=== PATIENT | female | born 1965 | race Caucasian/White ===

== ENCOUNTER → 2019-04-07 | Outpatient (CLI) | payer BC ==
[2019-04-07 07:47] LABS: ANION GAP 12.6; CHLORIDE,CL 104 mmol/L (101-111); SODIUM,NA 139 mmol/L (135-145)
== END ==
LOC: DL.LAB 07:03
PROVIDERS: ATTEND Family Medicine
DX: I10 Essential (primary) hypertension (principal)
CPT/HCPCS: 36415; 80053; 80061; 85025

== ENCOUNTER 2020-06-01 13:30 | Emergency (ER) | payer BC ==
[2020-06-01] MEDS ORDERED: Lidocaine 1% 30 ML SDV ONE (13:31)
[2020-06-01] MEDS ORDERED: Lidocaine 1% 30 ML SDV INJECT ONE (13:47)
--- NOTE | 2020-06-01 15:05 | EDM.PDOC ---
ED HPI GENERAL MEDICAL PROBLEM - General Chief Complaint: Skin Complaint Stated Complaint: RIGHT PINKY BLEEDING Time Seen by Provider: 06/01/20 14:45 Source of Information: Reports: Patient History Limitations: Reports: No Limitations - History of Present Illness INITIAL COMMENTS - FREE TEXT/NARRATIVE: This 55 yo female patient reports to the ED with bleeding from her right 5th finger. The patient reports she noticed a small elevated area on her finger last night and popped it. The patient reports she has been bleeding from the area since last night. The patient has been applying pressure to the area, but it continues to bleed. Onset Date: 05/31/20 Duration: Constant Location: Reports: Upper Extremity, Right Quality: Reports: Other Severity: Mild Improves with: Reports: None Worsens with: Reports: None Context: Reports: Other Associated Symptoms: Reports: No Other Symptoms - Related Data Allergies Allergy/AdvReac Type Severity Reaction Status Date / Time No Known Allergies Allergy Verified 06/01/20 14:05 Home Meds: Home Meds Aspirin [Halfprin] 81 mg PO DAILY 03/13/15 [History] Biotin 5,000 mcg PO DAILY 03/13/15 [History] Calcium Carbonate 600 mg PO DAILY 03/13/15 [History] Cholecalciferol (Vitamin D3) [Vitamin D3] 1 tab PO DAILY 03/13/15 [History] Ferrous Sulfate [Iron] 1 tab PO DAILY 03/13/15 [History] Fish Oil/[place]-3 Fatty Acids [Fish Oil 1,000 MG] 1 cap PO DAILY 03/13/15 [History] Ibuprofen 400 mg PO Q8H PRN 03/13/15 [History] Multivitamin [Multivitamins] 1 tab PO DAILY 03/13/15 [History] PARoxetine [Paxil] 20 mg PO DAILY 03/13/15 [History] Past Medical History Cardiovascular History: Reports: Hypertension Musculoskeletal History: Reports: Other (See Below) Other Musculoskeletal History: Scoliosis ED ROS GENERAL - Review of Systems Review Of Systems: Comprehensive ROS is negative, except as noted in HPI. ED EXAM, SKIN/RASH Exam: See Below Exam Limited By: No Limitations General Appearance: Alert, WD/WN, No Apparent Distress Eye Exam: Bilateral Eye: EOMI, Normal Inspection, PERRL Ears: Hearing Grossly Normal Nose: Normal Inspection, No Blood Throat/Mouth: Normal Lips, Normal Teeth Neck: Full Range of Motion Respiratory/Chest: No Respiratory Distress, Lungs Clear, Normal Breath Sounds, No Accessory Muscle Use, Chest Non-Tender Cardiovascular: Normal Peripheral Pulses, Regular Rate, Rhythm (Female) Exam: Deferred Rectal (Female) Exam: Deferred Neurological: Alert, Oriented, CN II-XII Intact, Normal Cognition, Normal Gait, Normal Reflexes, No Motor/Sensory Deficits Psychiatric: Normal Affect, Normal Mood Skin: Wound/Incision (right 5th finger) Location, Skin: Upper Extremity, Right Lymphatic: No Adenopathy ED SKIN PROCEDURES - Laceration/Wound Repair Right Distal Digit - 5th (Baby) Appearance: Subcutaneous Distal NVT: Neuro & Vascular Intact Anesthetic Type: Local Local Anesthesia - Lidocaine (Xylocaine): 1% Plain Local Anesthetic Volume: 1cc Skin Prep: Saline Exploration/Debridement/Repair: Wound Explored, No Foreign Material Found Closed with: Sutures Lac/Wound length In cm: 0.5 Suture Size: 4-0 Suture Type: Prolene, Interrupted, Simple Drain Placement: No Sterile Dressing Applied: Nurse Tetanus Status Addressed: No Complications: No Course - Orders/Labs/Meds Meds: Medications Discontinued Medications Generic Name Dose Route Start Last Admin Trade Name Naomie PRN Reason Stop Dose Admin Lidocaine HCl 30 ml 06/01/20 13:47 Xylocaine-Mpf 1% INJECT 06/01/20 13:48 ONETIME ONE Departure - Departure Time of Disposition: 15:31 Disposition: Home, Self-Care 01 Condition: Fair Clinical Impression: Laceration of right little finger w/o foreign body w/o damage to nail Qualifiers: Encounter type: initial encounter Qualified Code(s): S61.216A - Laceration without foreign body of right little finger without damage to nail, initial encounter - Discharge Information *PRESCRIPTION DRUG MONITORING PROGRAM REVIEWED*: Not Applicable *COPY OF PRESCRIPTION DRUG MONITORING REPORT IN PATIENT [facility]INGUE[facility]: Not Applicable Forms: ED Department Discharge Care Plan Goals: The patient was advised of the examination results during the visit. The wound was sutured while in the ED to stop the bleeding. The patient was encouraged to keep the area clean and dry over the next 48 hours. The patient should have the suture removed in about 7 days. If the patient has any additional symptoms or concerns, the patient should either return to the emergency department or visit her primary care facility.
== END 2020-06-01 15:38 | disposition home or self-care (01) ==
LOC: DL.ED 13:30
DX: S61.216A Laceration without foreign body of right little finger without damage to nail, initial encounter (principal); I10 Essential (primary) hypertension; Z79.82 Long term (current) use of aspirin; Z79.899 Other long term (current) drug therapy; X58.XXXA Exposure to other specified factors, initial encounter
CPT/HCPCS: 12001; 99282; J2001

== ENCOUNTER 2023-10-07 13:33 | Inpatient (IN) | payer BC ==
[2023-10-07] MEDS ORDERED: Lactated Ringers 1,000 ML IV ONE ×2 (13:53→14:05)
[2023-10-07] MEDS ORDERED: Iopamidol 612 MG/ML 100 ML Bottle IVPUSH ONE (13:55)
[2023-10-07 14:02] LABS: BASOPHILS PERCENT AUTO 0.2 % (0.0-1.0); EOSINOPHILS PERCENT AUTO 0.1 % (1.0-3.0); HEMATOCRIT 41.7 % (37.0-47.0); HEMOGLOBIN 14.6 g/dL (12.0-16.0); LYMPHOCYTES PERCENT AUTO 8.3 % (20.5-50.1); MEAN CORPUSCULAR HEMOGLOBIN 31.2 pg (27.0-34.0); MEAN CORPUSCULAR VOLUME 89.1 fL (80-100); MONOCYTES PERCENT AUTO 3.5 % (2-8); NEUTROPHILS PERCENT AUTO 87.9 % (42.2-75.2); PLATELET COUNT,PLT 290 10^3/uL (150-450); RED BLOOD CELL COUNT 4.68 10^6/uL (4.2-5.4); WHITE BLOOD CELL COUNT,WBC 16.1 10^3/uL (5.0-10.0)
[2023-10-07] MEDS ORDERED: Ondansetron 4 MG/2 ML SDV IVPUSH ONE (14:05)
[2023-10-07 14:07] LABS: A/G RATIO 0.8; ALBUMIN 3.5 g/dL (3.4-5.0); ANION GAP 14.4 mEq/L (7-13); BILIRUBIN TOTAL 2.6 mg/dL (0.2-1.0); BUN/CREATININE RATIO 15.7 (No establ ref range); CALCIUM 9.3 mg/dL (8.5-10.1); CREATININE 1.02 mg/dL (0.55-1.02); EST CRCL DRUG DOSING (CG) 63.43 mL/min; POTASSIUM,K 3.4 mmol/L (3.5-5.1); PROTEIN TOTAL,TP 8.1 g/dL (6.4-8.2)
[2023-10-07] MEDS ORDERED: Ketorolac 30 MG/ML SDV IVPUSH PRN (17:30)
[2023-10-07] MEDS ORDERED: HYDROmorphone 0.5 MG/0.5 ML Syringe IVPUSH PRN (17:30)
[2023-10-07] MEDS ORDERED: Albuterol/Ipratropium 3.0-0.5 MG/3 ML Neb Soln NEB PRN (17:30)
[2023-10-07] MEDS ORDERED: Ondansetron 4 MG/2 ML SDV IVPUSH PRN (17:30)
[2023-10-07] MEDS ORDERED: Acetaminophen 325 MG Tab PO PRN (17:30)
[2023-10-07] MEDS ORDERED: Benzocaine 20% Topical Spray UD MUCMEM ONE (17:56)
[2023-10-07] MEDS ORDERED: Benzocaine 20% Oral Spray 59.2 ML Canister MUCMEM PRN (19:00)
[2023-10-07] MEDS: Metoclopramide 10 MG/2 ML SDV IVPUSH SCH (19:01)
[2023-10-07] MEDS ORDERED: LORazepam 2 MG/ML SDV IVPUSH ONE (19:02)
[2023-10-07] MEDS ORDERED: Benzocaine 20% Topical Spray UD ONE (20:26)
[2023-10-07] MEDS ORDERED: Pantoprazole 40 MG Vial IVPUSH ONE (20:54)
[2023-10-07] MEDS: Dextrose 5%-0.9% NaCl with KCl 1,000 ML IV SCH (22:46)
[2023-10-08] MEDS: Metoclopramide 10 MG/2 ML SDV IVPUSH SCH ×4 (01:12→17:46)
[2023-10-08 06:09] LABS: BASOPHILS PERCENT AUTO 0.2 % (0.0-1.0); EOSINOPHILS PERCENT AUTO 1.2 % (1.0-3.0); HEMATOCRIT 37.9 % (37.0-47.0); HEMOGLOBIN 12.9 g/dL (12.0-16.0); LYMPHOCYTES PERCENT AUTO 11.3 % (20.5-50.1); MEAN CORPUSCULAR HEMOGLOBIN 30.6 pg (27.0-34.0); MONOCYTES PERCENT AUTO 6.5 % (2-8); NEUTROPHILS PERCENT AUTO 80.8 % (42.2-75.2); PLATELET COUNT,PLT 280 10^3/uL (150-450); RED BLOOD CELL COUNT 4.21 10^6/uL (4.2-5.4); WHITE BLOOD CELL COUNT,WBC 9.7 10^3/uL (5.0-10.0)
[2023-10-08 06:32] LABS: ALANINE AMINOTRANSFERASE,ALT 33 U/L (14-59); ALBUMIN 2.9 g/dL (3.4-5.0); ALKALINE PHOSPHATASE 88 U/L (46-116); ANION GAP 10.3 mEq/L (7-13); ASPARTATE AMNIOTRANSFERASE,AST 15 U/L (15-37); BILIRUBIN TOTAL 1.4 mg/dL (0.2-1.0); BLOOD UREA NITROGEN,BUN 18 mg/dL (7-18); BUN/CREATININE RATIO 20.7 (No establ ref range); CALCIUM 8.6 mg/dL (8.5-10.1); CARBON DIOXIDE,CO2 28 mmol/L (21-32); CHLORIDE,CL 101 mmol/L (98-107); CREATININE 0.87 mg/dL (0.55-1.02); EST CRCL DRUG DOSING (CG) 64.37 mL/min; GLUCOSE RANDOM 135 mg/dL (70-99); MAGNESIUM 1.9 mg/dL (1.8-2.4); POTASSIUM,K 3.3 mmol/L (3.5-5.1); SODIUM,NA 136 mmol/L (136-145)
[2023-10-08 06:41] LABS: A/G RATIO 0.71; C-REACTIVE PROTEIN > 25.00 ng/dL (<=0.50); ESTIMATED GFR 76 mL/min (>=60)
[2023-10-08] MEDS ORDERED: Dicyclomine 10 MG Cap PO PRN (08:33)
[2023-10-08] MEDS ORDERED: Pantoprazole 40 MG Vial IVPUSH SCH (09:00)
[2023-10-08] MEDS: Hydrochlorothiazide 25 MG Tab PO SCH (09:26)
[2023-10-08] MEDS: PARoxetine 20 MG Tab PO SCH (09:27)
[2023-10-08] MEDS: Lisinopril 10 MG Tab PO SCH (09:28)
[2023-10-08] MEDS: Famotidine 20 MG/2 ML SDV IVPUSH SCH (09:30)
[2023-10-08] MEDS: Dextrose 5%-0.9% NaCl with KCl 1,000 ML IV SCH (13:23)
[2023-10-09] MEDS: Metoclopramide 10 MG/2 ML SDV IVPUSH SCH ×4 (00:18→18:01)
[2023-10-09] MEDS: Dextrose 5%-0.9% NaCl with KCl 1,000 ML IV SCH ×2 (05:21→18:02)
[2023-10-09 06:35] LABS: BASOPHILS PERCENT AUTO 0.3 % (0.0-1.0); EOSINOPHILS PERCENT AUTO 2.6 % (1.0-3.0); HEMATOCRIT 37.8 % (37.0-47.0); HEMOGLOBIN 12.9 g/dL (12.0-16.0); LYMPHOCYTES PERCENT AUTO 13.7 % (20.5-50.1); MEAN CORPUSCULAR HEMOGLOBIN 30.9 pg (27.0-34.0); MEAN CORPUSCULAR HGB CONC 34.1 g/dL (33.0-35.0); MEAN CORPUSCULAR VOLUME 90.4 fL (80-100); MONOCYTES PERCENT AUTO 9.9 % (2-8); NEUTROPHILS PERCENT AUTO 73.5 % (42.2-75.2); PLATELET COUNT,PLT 278 10^3/uL (150-450); RED BLOOD CELL COUNT 4.18 10^6/uL (4.2-5.4); WHITE BLOOD CELL COUNT,WBC 7.6 10^3/uL (5.0-10.0)
[2023-10-09 07:02] LABS: ALBUMIN 2.8 g/dL (3.4-5.0); ANION GAP 10.8 mEq/L (7-13); BILIRUBIN TOTAL 0.9 mg/dL (0.2-1.0); BUN/CREATININE RATIO 18.4 (No establ ref range); C-REACTIVE PROTEIN 17.12 ng/dL (<=0.50); CALCIUM 8.3 mg/dL (8.5-10.1); CREATININE 0.87 mg/dL (0.55-1.02); EST CRCL DRUG DOSING (CG) 64.37 mL/min; MAGNESIUM 1.9 mg/dL (1.8-2.4); POTASSIUM,K 3.8 mmol/L (3.5-5.1); PROTEIN TOTAL,TP 6.7 g/dL (6.4-8.2)
[2023-10-09 07:05] LABS: A/G RATIO 0.72
[2023-10-09] MEDS: Famotidine 20 MG/2 ML SDV IVPUSH SCH (08:28)
[2023-10-09] MEDS: Hydrochlorothiazide 25 MG Tab PO SCH (08:28)
[2023-10-09] MEDS: PARoxetine 20 MG Tab PO SCH (08:29)
[2023-10-09] MEDS: Lisinopril 10 MG Tab PO SCH (08:29)
[2023-10-10 06:30] LABS: BASOPHILS PERCENT AUTO 0.5 % (0.0-1.0); EOSINOPHILS PERCENT AUTO 3.7 % (1.0-3.0); HEMOGLOBIN 12.9 g/dL (12.0-16.0); LYMPHOCYTES PERCENT AUTO 24.1 % (20.5-50.1); MEAN CORPUSCULAR HEMOGLOBIN 31.2 pg (27.0-34.0); MEAN CORPUSCULAR HGB CONC 34.9 g/dL (33.0-35.0); MEAN CORPUSCULAR VOLUME 89.4 fL (80-100); MONOCYTES PERCENT AUTO 9.3 % (2-8); NEUTROPHILS PERCENT AUTO 62.4 % (42.2-75.2); PLATELET COUNT,PLT 323 10^3/uL (150-450); RED BLOOD CELL COUNT 4.14 10^6/uL (4.2-5.4); WHITE BLOOD CELL COUNT,WBC 7.6 10^3/uL (5.0-10.0)
[2023-10-10 07:24] LABS: ANION GAP 11.3 mEq/L (7-13); BILIRUBIN TOTAL 0.8 mg/dL (0.2-1.0); BUN/CREATININE RATIO 15.6 (No establ ref range); C-REACTIVE PROTEIN 14.19 ng/dL (<=0.50); CALCIUM 8.5 mg/dL (8.5-10.1); CREATININE 0.77 mg/dL (0.55-1.02); EST CRCL DRUG DOSING (CG) 72.73 mL/min; MAGNESIUM 1.9 mg/dL (1.8-2.4); POTASSIUM,K 3.3 mmol/L (3.5-5.1)
[2023-10-10 07:42] LABS: A/G RATIO 0.75
[2023-10-10] MEDS: Lisinopril 10 MG Tab PO SCH (08:31)
[2023-10-10] MEDS: Hydrochlorothiazide 25 MG Tab PO SCH (08:31)
[2023-10-10] MEDS: Famotidine 20 MG/2 ML SDV IVPUSH SCH (08:31)
[2023-10-10] MEDS: PARoxetine 20 MG Tab PO SCH (08:31)
[2023-10-10] MEDS: Dextrose 5%-0.9% NaCl with KCl 1,000 ML IV SCH (08:38)
[2023-10-10 16:25] VITALS: BP 145/79; PULSE 90
== END 2023-10-10 18:19 | disposition home or self-care (01) | DRG 247 ==
LOC: DL.ED 13:33 → DL.MS 17:14 → UNDOADMOB 17:14 → DL.ED 17:16 → INTOOBSV 10-09 09:50 → OBSVTOIN 10-09 09:50
PROVIDERS: ADMIT Internal Medicine; ATTEND Internal Medicine
PROC: 0D9670Z Drainage of Stomach with Drainage Device, Via Natural or Artificial Opening (ICD-10-PCS; principal; 2023-10-09)
DX: K56.600 Partial intestinal obstruction, unspecified as to cause (principal); E87.1 Hypo-osmolality and hyponatremia; E87.8 Other disorders of electrolyte and fluid balance, not elsewhere classified; K76.0 Fatty (change of) liver, not elsewhere classified; I10 Essential (primary) hypertension; G47.33 Obstructive sleep apnea (adult) (pediatric); F32.A Depression, unspecified; K80.20 Calculus of gallbladder without cholecystitis without obstruction; D72.829 Elevated white blood cell count, unspecified; E87.6 Hypokalemia; E80.6 Other disorders of bilirubin metabolism; E66.01 Morbid (severe) obesity due to excess calories; Z79.82 Long term (current) use of aspirin; Z79.899 Other long term (current) drug therapy; Z68.41 Body mass index [BMI] 40.0-44.9, adult
CPT/HCPCS: 36415; 74018; 74019; 74177; 80053; 83605; 83690; 83735; 85025; 86140; 96361; 96365; 96366; 96374; 96375; 96376; 99222; 99232; 99238; 99284; 99285-25; A9270-GY; C9113; G0378; J1170; J2060; J2405; J2765; J3480; J3490; J7120; Q9967

== ENCOUNTER 2024-04-01 16:32 | Emergency (ER) | payer BC ==
[2024-04-01] MEDS ORDERED: Acetaminophen 500 MG Tab PO ONE (16:51)
[2024-04-01] MEDS: Acetaminophen 325 MG Tab PO ONE (17:30)
[2024-04-01 19:17] VITALS: BP 180/90; PULSE 68
[2024-04-01] MEDS: Ketorolac 30 MG/ML SDV IM ONE (19:31)
== END 2024-04-01 19:55 | disposition home or self-care (01) ==
LOC: DL.ED 16:32
DX: S83.92XA Sprain of unspecified site of left knee, initial encounter (principal); I10 Essential (primary) hypertension; Z79.82 Long term (current) use of aspirin; Z79.899 Other long term (current) drug therapy; X50.1XXA Overexertion from prolonged static or awkward postures, initial encounter
CPT/HCPCS: 73562; 96372; 99283; A9270; J1885; 99284

== ENCOUNTER 2025-05-01 06:19 | Day surgery (SDC) | payer BC ==
[~2025-05-01 06:19] MED LIST: Propofol 200 MG/20 ML SDV ONE
[2025-05-01] MEDS ORDERED: Lidocaine 2% 20 ML MDV NERVRT ONE (06:20)
[2025-05-01] MEDS ORDERED: Propofol 200 MG/20 ML SDV IV ONE (06:20)
[2025-05-01] MEDS ORDERED: Lactated Ringers 1,000 ML IV ONE (06:20)
[2025-05-01] MEDS: Lactated Ringers 1,000 ML IV SCH (07:00)
[2025-05-01 08:58] VITALS: BP 124/66; PULSE 55
== END 2025-05-01 09:05 | disposition home or self-care (01) ==
LOC: DL.ENDO 06:19
PROVIDERS: ATTEND Internal Medicine Gastroenterology
DX: Z12.11 Encounter for screening for malignant neoplasm of colon (principal); I10 Essential (primary) hypertension; E66.9 Obesity, unspecified; Z68.39 Body mass index [BMI] 39.0-39.9, adult
CPT/HCPCS: J2003; J2704; J7120